=== PATIENT | female | born 1935 | race American Indian/Alaskan Native ===

== ENCOUNTER 2017-11-25 21:29 | Emergency (ER) | payer MEDICARE, OTHER ==
[~2017-11-25 21:29] MED LIST: ADRENALIN ONE; INTROPIN DRIP 800 MG/D5W 250 ML IV ONE; SODIUM BICARBONATE IV ONE
--- NOTE | 2017-11-25 21:57 | Emergency Department Report ---
HPI - General Time Seen by Provider: 11/25/17 21:52 - HPI HPI: Room 2 The patient is an 82-year-old female presenting with chief complaint cardiac arrest. Per EMS they received a call for difficulty breathing. While en route the call was upgraded to cardiac arrest. The first engine arrived on scene at 20:57 to find the patient in PEA. The patient was intubated and ACLS protocols initiated and patient transported to the ED. In the ED the patient remained in PEA and ACLS protocols were continued without return of spontaneous circulation Location: Cardiovascular system Duration: [See above] Quality: Cardiac arrest Severity: Severe Modifying factors: [see above] Context: [see above] Mode of transportation: [not driving] ED Past Medical Hx - Past Medical History Hx Hypertension: Yes - Surgical History Past Surgical History?: Yes - Family History Family history: no significant - Social History Smoking Status: Unknown if ever smoked ED Review of Systems ROS: Stated complaint: CARDIAC ARREST Other details as noted in HPI Comment: Unobtainable due to pts medical conditions Physical Exam - Physical Exam Physical Exam: GENERAL: The patient is well-developed well-nourished female lying on stretcher receiving chest compressions from EMS and being bagged via BVM/ETT. [] HEENT: Normocephalic. Atraumatic. Pupils 5 mm and fixed NECK: Trachea midline CHEST/LUNGS: No spontaneous respirations. Breath sounds equal bilaterally with bagging HEART/CARDIOVASCULAR: no heart sounds. PEA on monitor ABDOMEN: Abdomen is soft, nontender. There is no abdominal distention. SKIN: There is no rash. There is no pedal edema bilaterally. There is no diaphoresis. NEURO: GCS 3T MUSCULOSKELETAL: There is no evidence of acute injury. ED Medical Decision Making - Differential Diagnosis cardiac arrest Critical care attestation.: If time is entered above; I have spent that time in minutes in the direct care of this critically ill patient, excluding procedure time. ED Disposition Clinical Impression: Cardiac arrest Disposition: DC-20 Is pt being admited?: No Does the pt Need Aspirin: No Condition: Poor Referrals: PRIMARY CARE, [Primary Care Provider] - 3-5 Days Time of Disposition: 21:53 (patient )
== END 2017-11-26 01:22 ==
LOC: ED 21:29
DX: I46.9 Cardiac arrest, cause unspecified (principal); I10 Essential (primary) hypertension
CPT/HCPCS: 82962; 99285; J0171; J1265